=== PATIENT | female | born 1950 | race Caucasian/White ===

== ENCOUNTER → 2023-09-25 12:27 | Outpatient (BNVA) | payer OTHER, SELFPAY | PROVIDERS: Family Provider Nurse Practitioner Family; PCP Nurse Practitioner Family; Referring Provider Nurse Practitioner Family; Visit Provider Nurse Practitioner Family | DX: L57.0 Actinic keratosis (principal); L55.0 Sunburn of first degree; L91.0 Hypertrophic scar; L57.8 Other skin changes due to chronic exposure to nonionizing radiation; Z85.828 Personal history of other malignant neoplasm of skin; D22.5 Melanocytic nevi of trunk; L81.4 Other melanin hyperpigmentation; L82.1 Other seborrheic keratosis; D48.5 Neoplasm of uncertain behavior of skin; G20.A1 Parkinson's disease without dyskinesia, without mention of fluctuations | CPT/HCPCS: 11102; 17000; 99203 ==

== ENCOUNTER → 2023-09-30 15:11 | Outpatient (BNVA) | payer OTHER, SELFPAY | PROVIDERS: Family Provider Nurse Practitioner Family; PCP Nurse Practitioner Family; Visit Provider Dermatology | DX: Z08 Encounter for follow-up examination after completed treatment for malignant neoplasm (principal); L91.0 Hypertrophic scar; Z85.828 Personal history of other malignant neoplasm of skin | CPT/HCPCS: 11900; 99213 ==

== ENCOUNTER → 2023-11-14 13:06 | Outpatient (BNVA) | payer OTHER, SELFPAY | PROVIDERS: Family Provider Nurse Practitioner Family; PCP Nurse Practitioner Family; Visit Provider Dermatology | DX: L91.0 Hypertrophic scar (principal); L72.0 Epidermal cyst; Z85.828 Personal history of other malignant neoplasm of skin | CPT/HCPCS: 99214 ==

== ENCOUNTER → 2024-09-22 11:09 | Outpatient (BNVA) | payer OTHER, SELFPAY | PROVIDERS: Family Provider Nurse Practitioner Family; PCP Nurse Practitioner Family; Visit Provider Nurse Practitioner Family | DX: L91.0 Hypertrophic scar (principal); D18.01 Hemangioma of skin and subcutaneous tissue; L57.8 Other skin changes due to chronic exposure to nonionizing radiation; X32.XXXA Exposure to sunlight, initial encounter; L81.4 Other melanin hyperpigmentation; Z08 Encounter for follow-up examination after completed treatment for malignant neoplasm; Z85.828 Personal history of other malignant neoplasm of skin; L82.0 Inflamed seborrheic keratosis; L29.89 Other pruritus; R20.8 Other disturbances of skin sensation; D48.5 Neoplasm of uncertain behavior of skin; L91.8 Other hypertrophic disorders of the skin | CPT/HCPCS: 11102; 17110; 99214 ==

== ENCOUNTER → 2024-10-29 09:26 | Outpatient (BNVA) | payer OTHER, SELFPAY | PROVIDERS: Family Provider Nurse Practitioner Family; PCP Nurse Practitioner Family; Visit Provider Dermatology | DX: L30.4 Erythema intertrigo (principal); C44.319 Basal cell carcinoma of skin of other parts of face; L57.0 Actinic keratosis | CPT/HCPCS: 11642; 12052; 17000; 99214 ==

== ENCOUNTER → 2025-03-18 15:36 | Outpatient (BNVA) | payer OTHER, SELFPAY | PROVIDERS: Family Provider Nurse Practitioner Family; PCP Nurse Practitioner Family; Visit Provider Nurse Practitioner Family | DX: D69.2 Other nonthrombocytopenic purpura (principal) | CPT/HCPCS: 11102; 17000; 17110; 99213 ==